=== PATIENT | male | born 1975 | race African-American/Black ===

== ENCOUNTER 2018-02-04 19:52 | Emergency (ER) | payer SELFPAY ==
[~2018-02-04] VITALS: Ht 190.5 cm; Wt 72.6 kg
--- NOTE | 2018-02-04 21:44 | Emergency Room Report ---
History of Present Illness General Chief Complaint: Overdose Source: Patient Present Illness HPI Patient presents by paramedics for unintentional overdose on fentanyl Patient does report extensive drug habit and abuse He reports that he got the fentanyl from someone that he should not have His girlfriend was with him And he had Narcan with them Patient overdosed and became unresponsive Was provided Narcan by paramedics as well and presents awake alert Denies any chest pain denies any abdominal pain He denies any previous overdose such as this adamantly denies any homicidal or suicidal thoughts with this Allergies: Coded Allergies: No Known Allergies (Unverified , 02/04/18) Patient History Past Medical History: see triage record Pertinent Family History: none Reviewed Nursing Documentation: PMH: Agreed; PSxH: Agreed Nursing Documentation-PMH Past Medical History: No History, Except For Hx Asthma: Yes Review of Systems All Other Systems: negative except mentioned in HPI Physical Exam Vital Signs Date Time Temp Pulse Resp B/P (MAP) Pulse Ox O2 Delivery O2 Flow Rate FiO2 02/04/18 19:43 97.8 81 15 143/83 99 Room Air 97.9 Sp02 EP Interpretation: reviewed, normal General Appearance: well appearing, no apparent distress Head: normocephalic, atraumatic Eyes: bilateral eye PERRL, bilateral eye EOMI ENT: hearing grossly normal, normal pharynx, TMs + canals normal, uvula midline Neck: full range of motion, supple, no meningismus, no bony tend Respiratory: lungs clear, normal breath sounds, no rhonchi, no respiratory distress, no retraction, no accessory muscle use Cardiovascular #1: normal peripheral pulses, regular rate, rhythm, no edema, no gallop, no JVD, no murmur Gastrointestinal: normal bowel sounds, non tender, soft, no mass, no organomegaly, non-distended, no guarding, no hernia, no pulsatile mass, no rebound Genitourinary: no CVA tenderness Musculoskeletal: normal inspection Neurologic: oriented x3, responsive, 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 nml as tested, motor strength/ tone normal, sensory intact Psychiatric: mood/affect normal Skin: normal color, no rash, warm/dry, palpation normal Lymphatic: normal inspection, no adenopathy Medical Decision Making Diagnostic Impression: Primary Impression: Drug overdose ER Course Given the patient's presentation at this to the patient's girlfriend at bedside as well There continues not to be any complaints of suicidal thought And they report unintentional overdose Patient's EKG and x-ray are normal and patient stable for close outpatient follow-up EKG Diagnostic Results Rate: normal Rhythm: NSR ST Segments: no acute changes Rhythm Strip Diag. Results EP Interpretation: yes Rate: 78 Rhythm: NSR, no PVC's, no ectopy Chest X-Ray Diagnostic Results Chest X-Ray Diagnostic Results : Chest X-Ray Ordered: Yes # of Views/Limited/Complete: 1 View Indication: Chest Pain EP Interpretation: Yes Interpretation: no consolidation, no effusion, no pneumothorax Impression: No acute disease Electronically Signed by: Deanne Weller DO Last Vital Signs Date Time Temp Pulse Resp B/P (MAP) Pulse Ox O2 Delivery O2 Flow Rate FiO2 02/04/18 20:20 100 18 02/04/18 19:43 97.8 143/83 99 Room Air 97.9 Status: improved Disposition: HOME, SELF-CARE Condition: Improved Referrals: NOT CHOSEN IPA/MD,REFERRING (PCP) Patient Instructions: Drug Overdose Additional Instructions: Patient is provided with the discharge instructions notified to follow up with primary doctor in the next 2-3 days otherwise return to the er with any worsening symptoms. Please note that this report is being documented using [employer] technology. This can lead to erroneous entry secondary to incorrect interpretation by the dictating instrument. Deanne Weller DO Feb 04, 2018 21:44
[2018-02-04 21:45] VITALS: BP 128/89
[2018-02-04 21:46] VITALS: BP 143/83
--- NOTE | 2018-02-05 10:17 | Diagnostic Imaging Report ---
Indication: Shortness of breath Technique: One view of the chest Comparison: none Findings: Lungs and pleural spaces are clear. Heart size is normal Impression: No acute process
--- NOTE | 2018-02-05 13:41 | Cardiology Report ---
APPROVED REPORT EKG Measurement Heart [id number] Normal sinus rhythm with sinus arrhythmia Biatrial enlargement Septal infarct, age undetermined Abnormal ECG
== END 2018-02-04 21:48 | disposition home or self-care (01) ==
LOC: EDBD 19:52 → EMR 21:16
DX: T40.4X1A Poisoning by other synthetic narcotics, accidental (unintentional), initial encounter (principal); R41.82 Altered mental status, unspecified; R06.02 Shortness of breath
CPT/HCPCS: 71045; 93005; 99283

== ENCOUNTER 2018-02-18 05:42 | Emergency (ER) | payer OTHER ==
[~2018-02-18] VITALS: Ht 190.5 cm; Wt 74.8 kg
[2018-02-18] MEDS ORDERED: NKM (05:50)
[2018-02-18] MEDS ORDERED: Norco 5mg/325mg tab ORAL ONE (06:00)
--- NOTE | 2018-02-18 06:03 | Emergency Room Report ---
History of Present Illness General Chief Complaint: Upper Extremity Injury Source: Patient Present Illness HPI This is a 42-year-old male who is right-hand dominant. He presents with chief complaint of left wrist injury. He said he fell off a stage IV hours ago. There is deformity to his left wrist. Denies any other trauma. Did not pass out. Pain is 9 out of 10. Worse with movement. Better with rest. Denies head injury. Allergies: Coded Allergies: No Known Allergies (Unverified , 02/04/18) Patient History Past Medical History: see triage record, old chart reviewed Pertinent Family History: none Social History: Reports: smoking Immunizations: other Reviewed Nursing Documentation: PMH: Agreed; PSxH: Agreed Nursing Documentation-PMH Past Medical History: No History, Except For Hx Asthma: Yes Review of Systems Eye: Denies: eye pain, blurred vision ENT: Denies: ear pain, nose congestion, throat swelling Respiratory: Denies: cough, shortness of breath Cardiovascular: Denies: chest pain, palpitations Gastrointestinal: Denies: abdominal pain, diarrhea, nausea, vomiting Musculoskeletal: Reports: joint pain, joint swelling; Denies: back pain Skin: Denies: rash Neurological: Denies: headache, numbness Endocrine: Denies: increased thirst, increased urine Hematologic/Lymphatic: Denies: easy bruising All Other Systems: negative except mentioned in HPI Physical Exam Vital Signs Date Time Temp Pulse Resp B/P (MAP) Pulse Ox O2 Delivery O2 Flow Rate FiO2 02/18/18 05:46 98.1 89 18 134/83 100 Room Air 98.1 vitals normal Sp02 EP Interpretation: reviewed, normal General Appearance: well appearing, no apparent distress, alert Head: normocephalic, atraumatic Eyes: bilateral eye PERRL, bilateral eye EOMI ENT: hearing grossly normal, normal pharynx Neck: full range of motion, supple, no meningismus Respiratory: chest non-tender, lungs clear, normal breath sounds Cardiovascular #1: regular rate, rhythm, no murmur Gastrointestinal: normal bowel sounds, non tender, no mass, no organomegaly, no bruit, non-distended Musculoskeletal: back normal, gait/station normal, other - Edema to left wrist. Dinner fork deformity. Radial pulses 2+. Tender to palpation. Psychiatric: mood/affect normal Skin: warm/dry Medical Decision Making Diagnostic Impression: Primary Impression: Radius and ulna distal fracture Qualified Codes: S52.502A - Unspecified fracture of the lower end of left radius, initial encounter for closed fracture; S52.602A - Unspecified fracture of lower end of left ulna, initial encounter for closed fracture ER Course Patient presents with a distal radius fracture and an ulnar styloid fracture. I will sign this patient out to Dr. Fang for closed reduction and discharge. Other X-Ray Diagnostic Results Other X-Ray Diagnostic Results : X-Ray ordered: left wrist x-rays # of Views/Limited Vs Complete: 3 View Indication: Pain EP Interpretation: Yes Interpretation: no dislocation, other - STS and comminuted distal radius and ulnar styloid frx. Impression: Other - distal radius and ulnar styloid frx. Electronically Signed by: William Mckeon MD Last Vital Signs Date Time Temp Pulse Resp B/P (MAP) Pulse Ox O2 Delivery O2 Flow Rate FiO2 02/18/18 05:46 98.1 89 18 134/83 100 Room Air 98.1 Status: improved Disposition: HOME, SELF-CARE Condition: Stable Scripts Ibuprofen* (MOTRIN*) 600 Mg Tablet 600 MG ORAL THREE TIMES A DAY, #30 TAB 0 Refills Prov: WILLIAM MCKEON M.D. 02/18/18 Hydrocodone/Acetaminophen 5-325* (HYDROCODONE/ACETAMINOPHEN 5-325*) 1 Each Tablet 1 TAB ORAL Q6H PRN for For Pain, #20 TAB 0 Refills Prov: WILLIAM MCKEON M.D. 02/18/18 Additional Instructions: Follow-up with your doctor for referral to see orthopedic doctor within a week. Return if symptom worsen. Elevate arm. Ice pack to the area. WILLIAM MCKEON M.D. February 18, 2018 06:03
[2018-02-18] MEDS ORDERED: HYDROCODON-ACE1 EA15 ORAL (06:22)
[2018-02-18] MEDS ORDERED: IBUPROFEN600 MG ORAL (06:22)
[2018-02-18] MEDS ORDERED: Lidocaine 1% MPF 10mg/ml 5ml INJ ONE (06:30)
[2018-02-18] MEDS ORDERED: Ketorolac 60mg Inj IM ONE (06:30)
[2018-02-18 07:05] VITALS: BP 128/84
[2018-02-18 07:07] VITALS: BP 128/84
--- NOTE | 2018-02-18 09:23 | Diagnostic Imaging Report ---
Indication: Pain left wrist pain 2 views of the left wrist were obtained. COMPARISON: Earlier film at 06:06 FINDINGS: There is a comminuted, intra-articular slightly impacted fracture of the distal radius extending into the radiolunate joint again demonstrated.. A fracture of the ulnar styloid also demonstrated. There is improved alignment compared to the initial film. Soft tissue swelling noted. IMPRESSION: Acute wrist injury as described above. Improved alignment
--- NOTE | 2018-02-18 09:24 | Diagnostic Imaging Report ---
Indication: Pain left wrist pain Findings: 3 views of the left wrist were obtained. There is a impacted dorsally displaced intra-articular comminuted fracture of the distal radius. Fracture of the ulnar styloid also demonstrated. Soft tissue swelling noted. IMPRESSION: Acute, comminuted, impacted and dorsally displaced fracture of the distal radius. Fracture of the ulnar styloid.
== END 2018-02-18 07:16 | disposition home or self-care (01) ==
LOC: EMR 06:01
DX: S52.592A Other fractures of lower end of left radius, initial encounter for closed fracture (principal); S52.612A Displaced fracture of left ulna styloid process, initial encounter for closed fracture; W17.89XA Other fall from one level to another, initial encounter; Y92.89 Other specified places as the place of occurrence of the external cause; J45.909 Unspecified asthma, uncomplicated
CPT/HCPCS: 96372; 99284